=== PATIENT | male | born 1965 | race Hispanic/Latino ===

== ENCOUNTER 2018-08-12 18:00 | Emergency (ER) | payer SELFPAY ==
[~2018-08-12 18:00] MED LIST: Iopamidol 370 76% 50 ML VIAL FS ONE
[2018-08-12 19:23] LABS: #Basophils 0.1 thou/uL (0.0-0.2); #Eosinphils 0.1 thou/uL (0.0-0.7); #Monocytes 0.8 thou/uL (0.11-0.59); #Neutrophils 5.1 thou/uL (1.40-6.50); %Basophils 0.7 % (0.0-1.0); %Eosinophils 1.8 % (0.0-10.0); %Lymphocytes 24.5 % (21.0-51.0); %Monocytes 10.1 % (0.0-10.0); %Neutrophils 62.8 % (42.0-75.0); Hemoglobin 15.7 g/dL (14.0-18.0); Mean Corpuscular HGB CONC 33.5 g/dL (32.0-36.0); Mean Corpuscular Hemoglobin 30.4 pg (27.0-31.0); Mean Corpuscular Volume 90.8 fL (78.0-98.0); Mean Platelet Volume 9.3 fL (7.4-10.4); Platelet Count 198 thou/uL (130-400); RBC Distribution Width 11.7 % (11.5-14.5); Red Blood Cell (RBC) Count 5.16 mill/uL (4.70-6.10); White Blood Cell (WBC) Count 8.2 thou/uL (4.8-10.8)
[2018-08-12 19:45] LABS: ALT (SGPT) 13 U/L (8-55); AST (SGOT) 16 U/L (5-34); Albumin 4.5 g/dL (3.5-5.0); Alkaline Phosphatase 47 U/L (40-150); Anion Gap 10 mmol/L (10-20); BUN (Urea Nitrogen) 10 mg/dL (8.4-25.7); Bilirubin, Total 1.3 mg/dL (0.2-1.2); Calc. Creatinine Clearance 0 mL/min (70-130); Calcium 9.7 mg/dL (7.8-10.44); Carbon Dioxide 27 mmol/L (22-29); Chloride 106 mmol/L (98-107); Estimated GFR-MDRD Greater than 90; Globulin 2.6 g/dL (2.4-3.5); Glucose 118 mg/dL (70-105); Lipase 128 U/L (8-78); Potassium 3.9 mmol/L (3.5-5.1); Protein, Total 7.1 g/dL (6.0-8.3); Sodium 139 mmol/L (136-145)
[2018-08-12 20:07] LABS: Bilirubin Negative (Negative); Blood, Urine Negative (Negative); Clarity CLEAR (Clear); Glucose, Urine (Dipstick) Negative (Negative); Leukocyte Negative (Negative); Nitrite Negative (Negative); Protein, Urine (Dipstick) Negative (Neg-Trace); Specific Gravity, Urine 1.018 (1.002-1.036); pH, Urine 6.5 (5.0-9.0)
[2018-08-12] MEDS ORDERED: Lidocaine Viscous Sol 2% 15 ml UD Cup ONE (22:47)
[2018-08-12] MEDS ORDERED: Mag-Al 1200 mg/1200 mg/30 ML UDCUP ONE (22:47)
--- NOTE | 2018-08-12 23:36 | CT ---
CT OF THE ABDOMEN AND PELVIS WITH IV CONTRAST: 08/12/18 INDICATION: History of abdominal pain. FINDINGS: Motion artifact limits image detail. There is a 1.2 cm hypodensity within the central right hepatic l obe difficult to fully characterize. There are other small hypodensities within the medial left hepat ic lobe. The pancreas, adrenal glands, and kidneys appear within normal limits. The spleen appears within norm al limits. There is a normal appendix in the right lower quadrant of the abdomen. There is a fat cont aining umbilical hernia. The bladder, rectum and perirectal soft tissues are unremarkable. There are a few scattered diverticula involving the sigmoid colon. There is bilateral pars defects at L4 with grade I spondylolisthesis. No definite acute osseous abnor mality is evident. IMPRESSION: 1. Limited exam due to motion artifact. 2. Normal appendix. 3. Hypodensity within the central right hepatic lobe difficult to fully characterize on the curr ent examination. Followup CT of the abdomen utilizing a hemangioma protocol is recommended for additi onal characterization. This could be performed on an nonemergent setting. 4. Colonic diverticulosis. 5. L4 pars defects. POS: [facility]
== END 2018-08-12 23:15 | disposition home or self-care (01) ==
LOC: ERS 18:00
DX: R10.33 Periumbilical pain (principal); F17.210 Nicotine dependence, cigarettes, uncomplicated
CPT/HCPCS: 36415; 74177; 80053; 81003; 83690; 85025